=== PATIENT | female | born 1980 | race Hispanic/Latino ===

== ENCOUNTER 2025-06-08 12:25 | Inpatient (IN) | payer OTHER ==
[2025-06-08] MEDS ORDERED: Senokot S 8.6-50 MG TAB PO PRN (13:21)
[2025-06-08] MEDS ORDERED: Melatonin 3 MG TAB PO PRN (13:21)
[2025-06-08] MEDS ORDERED: hydrALAZINE 20 MG/ML VIAL SLOW IVP PRN (13:21)
[2025-06-08 13:38] VITALS: BMI 22.5
[2025-06-08] MEDS: Acetaminophen 325 MG TAB PO PRN (15:26)
[2025-06-08] MEDS: Famotidine 20 MG TAB PO SCH (20:50)
[2025-06-09 04:53] LABS: Anion Gap 12 mmol/L (10-20); BUN (Urea Nitrogen) 8 mg/dL (7.0-18.7); Calc. Creatinine Clearance 96 mL/min (70-130); Calcium 9.0 mg/dL (7.8-10.44); Carbon Dioxide 22 mmol/L (22-29); Cardiac Risk 4.4 (Less than 4.5); Chloride 108 mmol/L (98-107); Cholesterol 167 mg/dl (< 200 Desired); Glucose 87 mg/dL (70-105); HDL Cholesterol 38 mg/dL (>60 Neg Risk); LDL Cholesterol, Calculated 99 mg/dL; Potassium 4.0 mmol/L (3.5-5.1); Sodium 138 mmol/L (136-145); Triglycerides 152 mg/dL (Less than 150)
[2025-06-09] MEDS: Enoxaparin 40 MG (0.4 mL) SYRINGE SC SCH (09:19)
[2025-06-09] MEDS: Lisinopril 10 MG TAB PO SCH (09:20)
[2025-06-09] MEDS: Aspirin 81 mg Enteric Coated Tablet PO SCH (09:20)
[2025-06-10 12:26] VITALS: BP 101/66; TEMP 98
== END 2025-06-10 16:05 | disposition home or self-care (01) | DRG 65 ==
LOC: CSHTELE 12:51
PROVIDERS: ADMIT Hospitalist; ATTEND Internal Medicine
DX: I63.89 Other cerebral infarction (principal); G81.94 Hemiplegia, unspecified affecting left nondominant side; R29.706 NIHSS score 6; I10 Essential (primary) hypertension; G40.909 Epilepsy, unspecified, not intractable, without status epilepticus; Z79.899 Other long term (current) drug therapy
CPT/HCPCS: 36415; 70551; 80048; 80061; 83036; 84443; 93306; J1650